=== PATIENT | male | born 1955 | race African-American/Black ===

== ENCOUNTER 2019-04-01 16:04 | Emergency (ER) | payer OTHER ==
--- NOTE | 2019-04-01 16:16 | PDOC ---
Rapid Medical Evaluation Chief Complaint: Blood Pressure Problem Time Seen by Provider: 04/01/19 16:11 Medical Evaluation: Allergies Allergy/AdvReac Type Severity Reaction Status Date / Time No Known Allergies Allergy Verified 09/22/16 12:08 04/01/19 16:11 I have performed a brief in-person evaluation of this patient. The patient presents with a chief complaint of: told to come to ER from [facility] office due to high BP- 190/106 Pertinent physical exam findings: no complaints of H/A, dizziness, CP, Palp- has not taken meds since November. I have ordered the following: UA , EKG The patient will proceed to the ED for further evaluation. 04/01/19 16:12 Discharge Disposition - Diagnosis Hypertension - Referrals - Patient Instructions - Post Discharge Activity
[2019-04-01 16:18] VITALS: PULSE 84; BMI 34.4
--- NOTE | 2019-04-01 17:36 | PDOC ---
History of Present Illness - General Chief Complaint: Blood Pressure Problem Stated Complaint: HYPERTENSION Time Seen by Provider: 04/01/19 16:11 History Source: Patient Exam Limitations: No Limitations - History of Present Illness Initial Comments: 04/01/19 19:46 Pt is a 63yo M with PMH of HTN, HLD presenting to ED from GI office for htn. He was found to have bp 190s/100s in office and told to come to ED. Pt denies chest pain, sob, headache, vision changes, abdominal pain, n/v/d, swelling. He states his pmd started him on amlodipine 5mg but had prescription insurance problems and could not get it filled. Insurance problem is fixed but he does not have refills. PMD: Bernadine PMH: see hpi PSH: none Meds: amlodipine Allergies: nkda Past History - Past Medical History Allergies/Adverse Reactions: Allergies Allergy/AdvReac Type Severity Reaction Status Date / Time No Known Allergies Allergy Verified 04/01/19 16:18 Home Medications: Ambulatory Orders Warfarin Na [Coumadin -] 7.5 mg PO DAILY 06/09/15 Amlodipine Besylate [Norvasc -] 5 mg PO DAILY #30 tablet 04/01/19 Anemia: No Asthma: No Cancer: No Cardiac Disorders: No CVA: No COPD: No CHF: No DVT: Yes (LLE) Dementia: No Diabetes: No GI Disorders: No Disorders: No HTN: Yes Hypercholesterolemia: No Liver Disease: No Seizures: No Thyroid Disease: No - Surgical History Abdominal Surgery: Yes (DENIES) Appendectomy: No Cardiac Surgery: No Cholecystectomy: No Lung Surgery: No Neurologic Surgery: No Orthopedic Surgery: No - Suicide/Smoking/Psychosocial Hx Smoking History: Never smoked Have you smoked in the past 12 months: No Hx Alcohol Use: No Drug/Substance Use Hx: No Substance Use Type: None Hx Substance Use Treatment: No Review of Systems - Review of Systems Constitutional: No: Symptoms Reported HEENTM: No: Symptoms Reported Respiratory: No: Symptoms reported Cardiac (ROS): No: Symptoms Reported ABD/GI: No: Symptoms Reported : No: Symptoms Reported Musculoskeletal: No: Symptoms Reported Integumentary: No: Symptoms Reported Neurological: No: Symptoms reported *Physical Exam - Vital Signs Last Vital Signs Temp Pulse Resp BP Pulse Ox 97.7 F 84 16 166/100 96 04/01/19 16:12 04/01/19 16:12 04/01/19 16:12 04/01/19 16:12 04/01/19 16:12 - Physical Exam General Appearance: Yes: Nourished, Appropriately Dressed. No: Apparent Distress HEENT: positive: EOMI, JOHN, Normal ENT Inspection Neck: positive: Trachea midline, Supple. negative: Lymphadenopathy (R), Lymphadenopathy (L) Respiratory/Chest: positive: Lungs Clear, Normal Breath Sounds. negative: Crackles, Wheezing Cardiovascular: positive: Regular Rhythm, Regular Rate, S1, S2. negative: Edema , JVD, Murmur Vascular Pulses: Carotid (R): 2+, Carotid (L): 2+, Dorsalis-Pedis (R): 2+, Doralis-Pedis (L): 2+ Gastrointestinal/Abdominal: positive: Normal Bowel Sounds, Soft Musculoskeletal: negative: CVA Tenderness Extremity: positive: Normal Capillary Refill. negative: Pedal Edema, Swelling Integumentary: positive: Normal Color, Dry, Warm Neurologic: positive: bulk sealer II-XII NML intact, Fully Oriented, Alert, Normal Mood/ Affect, Normal Response, Motor Strength 5/5 Medical Decision Making - Medical Decision Making 04/01/19 19:49 Pt is a 63yo M with PMH of HTN, HLD presenting to ED from GI office for htn. He was found to have bp 190s/100s in office and told to come to ED. Pt denies chest pain, sob, headache, vision changes, abdominal pain, n/v/d, swelling. He states his pmd started him on amlodipine 5mg but had prescription insurance problems and could not get it filled. Insurance problem is fixed but he does not have refills. Vitals: wnl PE: normal ddx includes but not limited to htn. PT asymptomatic, low suspicion for htn emergency/urgency, dissection, acs, pulmonary edema, cva/tia. Does not require further intervention at this time. BP is 144 systolic when I checked in the room , does not require acute intervention at this time. Will send rx to pharmacy for amlodipine 5mg for 30 days. Pt has pmd f/u. can be dc home. pt agrees to plan. given return precautions. *DC/Admit/Observation/Transfer Diagnosis at time of Disposition: Hypertension Qualifiers: Hypertension type: unspecified Qualified Code(s): I10 - Essential (primary) hypertension - Discharge Dispostion Disposition: HOME Condition at time of disposition: Improved Decision to Admit order: No - Prescriptions Prescriptions: Amlodipine Besylate [Norvasc -] 5 mg PO DAILY #30 tablet - Referrals Referrals: Fide Ramsey MD [Primary Care Provider] - - Patient Instructions Printed Discharge Instructions: DI for High Blood Pressure, How to Monitor Your Blood Pressure at Home Additional Instructions: You were seen in the emergency room for high blood pressure. Your blood pressure here was 160s/90s then 140s/80s. You are not having any symptoms at this time, no further testing is needed. A prescription for amlodipine 5mg was sent to your pharmacy. Please take daily as directed. I highly recommend you make an appointment with you primary care doctor to monitor your blood pressure and your cholesterol. Please make an appointment this week. Come back to the emergency room if you have chest pain, have blurry vision, headaches, difficulty breathing, leg swelling or if any new concerning symptom develops. Thank you - Post Discharge Activity
--- NOTE | 2019-04-01 17:40 | PDOC ---
Documentation entered by Gavin Lockhart SCRIBE, acting as scribe for Indu Cotton MD. Indu Cotton MD: This documentation has been prepared by the Richy ortega Daniel, SCRIBE, under my direction and personally reviewed by me in its entirety. I confirm that the documentation accurately reflects all work, treatment, procedures, and medical decision making performed by me. Attending Attestation - Resident Resident Name: Ashly Perla - ED Attending Attestation I have performed the following: I have examined & evaluated the patient, The case was reviewed & discussed with the resident, I agree w/resident's findings & plan, Exceptions are as noted - HPI HPI: 04/01/19 17:32 63 yo male sent from Dr Gomez's office because his BP was elevated w SBP in 190's. head ncat eyes eomi neck supple lungs cta b/l cvs [id number] abd nontender skin warm and dry no flank tendernress neuro axox3,ambulatory,no gross focal neuro deficits - Physicial Exam PE: 04/01/19 17:41 please see above physical exam - Medical Decision Making 04/01/19 17:35 -he denies chest pain,visual changes,headache,shortness of breath,nausea or vomiting or any problems w his gait . pt is asymptomatic and states because of an insurance issue he had not been taking his blood pressure medication. However his insurance is now in effect and he simply needs a prescription sent to his [facility] pharmacy on [address] essential HTN plan RX to pharmacy
[2019-04-01 17:43] VITALS: BP 149/88; TEMP 98.1
[2019-04-01 17:49] LABS: EPI CELLS 0.2 /HPF (0-5/HPF); HYALINE CASTS 0 /lpf (0-8); PH,URINE 7.5 (5.0-8.0); URINE APPEARANCE CLEAR; URINE BILIRUBIN NEGATIVE (NEGATIVE); URINE COLOR DK YELLOW; URINE GLUCOSE (UA) NEGATIVE (NEGATIVE); URINE KETONE TRACE (NEGATIVE); URINE LEUK ESTERASE TRACE (NEGATIVE); URINE NITRITE NEGATIVE (NEGATIVE); URINE PROTEIN TRACE (NEGATIVE); URINE RBC 2 /hpf (0-4); URINE WBC 0 /hpf (0-5)
--- NOTE | 2019-04-02 14:53 | EKG ---
Test Reason : Blood Pressure : / mmHG Vent. Rate : 073 BPM Atrial Rate : 073 BPM P-R Int : 156 ms QRS Dur : 090 ms QT Int : 396 ms P-R-T Axes : 069 049 080 degrees QTc Int : 436 ms NORMAL SINUS RHYTHM POSSIBLE LEFT ATRIAL ENLARGEMENT NONSPECIFIC T WAVE ABNORMALITY ABNORMAL ECG WHEN COMPARED WITH ECG OF 17-MAY-2015 20:46, NONSPECIFIC T WAVE ABNORMALITY, WORSE IN LATERAL LEADS Confirmed by MD EMILIA, KEYONNA ([id number]) on 04/02/2019 2:52:50 PM Referred By: Confirmed By:KEYONNA NIETO MD
== END 2019-04-01 17:40 | disposition home or self-care (01) ==
LOC: JER 16:04
DX: I10 Essential (primary) hypertension (principal)
CPT/HCPCS: 81003; 93005; 93010; 99282-25

== ENCOUNTER 2019-04-25 08:16 | Day surgery (SDC) | payer OTHER | END 2019-04-25 12:25 | disposition home or self-care (01) | LOC: JASU-ENDO 08:16 ==

== ENCOUNTER 2020-12-17 14:27 | Inpatient (IN) | payer OTHER ==
[2020-12-17] MEDS ORDERED: dilTIAZem HCL 50 MG/10 ML - 10 ML VIAL IVPUSH ONE (15:21)
[2020-12-17] MEDS ORDERED: SODIUM CHLORIDE 1,000 ML IV SCH (15:30)
[2020-12-17] MEDS ORDERED: dilTIAZem HCL 125 MG/25 ML - 25 ML VIAL ONE (15:39)
[2020-12-17 16:06] LABS: EOS % 1.9 % (0-4.5); HEMATOCRIT 41.2 % (35.4-49); HEMOGLOBIN 13.1 GM/dL (11.7-16.9); LYMPH % 18.1 % (8-40); MCH 27.9 pg (25.7-33.7); MCHC 31.8 g/dl (32.0-35.9); MEAN CELL VOLUME 87.7 fl (80-96); MONO % 5.7 % (3.8-10.2); NEUT % 73.3 % (42.8-82.8); PLATELET COUNT 214 K/MM3 (134-434); RBC 4.69 M/mm3 (4.00-5.60)
[2020-12-17] MEDS ORDERED: dilTIAZem HCL 30 MG TABLET PO ONE (16:11)
[2020-12-17] MEDS ORDERED: dilTIAZem HCL 30 MG TABLET ONE (16:17)
[2020-12-17 16:22] LABS: INR 1.17 (0.83-1.09); PROTHROMBIN TIME (PATIENT) 14.1 SEC (9.7-13.0)
[2020-12-17 16:25] LABS: ACTIVATED PTT 28.4 SECONDS (25.2-36.5)
[2020-12-17 16:28] LABS: POTASSIUM 4.7 mmol/L (3.5-5.1)
[2020-12-17 16:30] LABS: BLOOD UREA NITROGEN 10.9 mg/dL (7-18); CALCIUM 8.8 mg/dL (8.5-10.1)
[2020-12-17 16:31] LABS: ALBUMIN 3.2 g/dl (3.4-5.0)
[2020-12-17 16:33] LABS: CREATININE 0.9 mg/dL (0.55-1.3)
[2020-12-17 16:35] LABS: BILIRUBIN,TOTAL 1.1 mg/dL (0.2-1); TOT PROT 7.3 g/dl (6.4-8.2)
[2020-12-17 16:38] LABS: N-TERMINAL BNP 1195.4 pg/ml (5-125)
[2020-12-17 17:30] LABS: ERYTHROCYTE SEDIMENTATION RATE 29 mm/hr (0-20)
[2020-12-17 21:33] LABS: URINE APPEARANCE CLEAR; URINE BILIRUBIN NEGATIVE (NEGATIVE); URINE COLOR YELLOW; URINE GLUCOSE (UA) NEGATIVE (NEGATIVE); URINE KETONE NEGATIVE (NEGATIVE)
[2020-12-17 21:34] LABS: URINE LEUK ESTERASE NEGATIVE (NEGATIVE); URINE NITRITE NEGATIVE (NEGATIVE); URINE PROTEIN TRACE (NEGATIVE)
[2020-12-18] MEDS ORDERED: METOPROLOL TARTRATE 5 MG/5 ML VIAL IVPUSH ONE (00:59)
[2020-12-18] MEDS ORDERED: METOPROLOL TARTRATE 5 MG/5 ML VIAL ONE (01:02)
[2020-12-18] MEDS ORDERED: ACETAMINOPHEN 325 MG TABLET (FP) PO PRN (01:15)
[2020-12-18] MEDS ORDERED: DILTIAZEM INJECTION 125 MG in SODIUM CHLORIDE 100 ML IVPB SCH ×3 (01:15→02:18)
[2020-12-18] MEDS ORDERED: FUROSEMIDE 40 MG/4 ML INJECTABLE VIAL IVPUSH ONE (01:40)
[2020-12-18] MEDS ORDERED: dilTIAZem HCL 30 MG TABLET PO ONE (02:00)
[2020-12-18 07:48] LABS: BASO % 0.8 % (0-2.0); EOS % 1.6 % (0-4.5); HEMATOCRIT 40.2 % (35.4-49); HEMOGLOBIN 13.2 GM/dL (11.7-16.9); LYMPH % 16.3 % (8-40); MCH 28.4 pg (25.7-33.7); MCHC 32.8 g/dl (32.0-35.9); MEAN CELL VOLUME 86.5 fl (80-96); MEAN PLT VOLUME 10.2 fl (7.5-11.1); MONO % 5.5 % (3.8-10.2); NEUT % 75.8 % (42.8-82.8); PLATELET COUNT 200 K/MM3 (134-434); RBC 4.65 M/mm3 (4.00-5.60); RDW 16.8 % (11.9-15.9); WHITE BLOOD COUNT 11.3 K/mm3 (4.0-10.0)
[2020-12-18 07:52] LABS: POTASSIUM 3.9 mmol/L (3.5-5.1)
[2020-12-18 07:58] LABS: ALBUMIN 3.1 g/dl (3.4-5.0); BLOOD UREA NITROGEN 11.4 mg/dL (7-18); CALCIUM 8.5 mg/dL (8.5-10.1); MAGNESIUM 2.2 mg/dL (1.8-2.4)
[2020-12-18 08:01] LABS: PHOSPHOROUS 4.1 mg/dL (2.5-4.9)
[2020-12-18 08:02] LABS: BILIRUBIN,TOTAL 1.2 mg/dL (0.2-1); TOT PROT 7.2 g/dl (6.4-8.2)
[2020-12-18] MEDS: CHOLECALCIFEROL (VIT D3) 1,000 UNIT (25 MCG) TABLET PO SCH (09:41)
[2020-12-18] MEDS: APIXABAN 5 MG TABLET PO SCH ×2 (09:42→23:19)
[2020-12-18] MEDS: ASCORBIC ACID 500 MG TABLET (FP) PO SCH ×2 (09:42→23:19)
[2020-12-18] MEDS: ZINC SULFATE 220 MG CAPSULE (FP) PO SCH (09:42)
[2020-12-18] MEDS: FUROSEMIDE 40 MG/4 ML INJECTABLE VIAL IVPUSH SCH (09:42)
[2020-12-19 07:57] LABS: HEMATOCRIT 41.5 % (35.4-49); HEMOGLOBIN 13.5 GM/dL (11.7-16.9); MCH 28.7 pg (25.7-33.7); MCHC 32.6 g/dl (32.0-35.9); MEAN CELL VOLUME 87.8 fl (80-96); MEAN PLT VOLUME 10.6 fl (7.5-11.1); PLATELET COUNT 219 K/MM3 (134-434); RBC 4.72 M/mm3 (4.00-5.60); RDW 16.7 % (11.9-15.9); WHITE BLOOD COUNT 10.5 K/mm3 (4.0-10.0)
[2020-12-19 08:26] LABS: POTASSIUM 3.9 mmol/L (3.5-5.1)
[2020-12-19 08:34] LABS: BLOOD UREA NITROGEN 15.2 mg/dL (7-18)
[2020-12-19 08:35] LABS: CALCIUM 8.8 mg/dL (8.5-10.1)
[2020-12-19 08:36] LABS: MAGNESIUM 2.2 mg/dL (1.8-2.4)
[2020-12-19 08:37] LABS: PHOSPHOROUS 4.2 mg/dL (2.5-4.9)
[2020-12-19 08:38] LABS: BILIRUBIN,TOTAL 1.3 mg/dL (0.2-1); TOT PROT 6.9 g/dl (6.4-8.2)
[2020-12-19] MEDS: ZINC SULFATE 220 MG CAPSULE (FP) PO SCH (10:17)
[2020-12-19] MEDS: CHOLECALCIFEROL (VIT D3) 1,000 UNIT (25 MCG) TABLET PO SCH (10:17)
[2020-12-19] MEDS: FUROSEMIDE 40 MG/4 ML INJECTABLE VIAL IVPUSH SCH (10:18)
[2020-12-19] MEDS: APIXABAN 5 MG TABLET PO SCH ×2 (10:18→23:14)
[2020-12-19] MEDS: ASCORBIC ACID 500 MG TABLET (FP) PO SCH ×2 (10:18→23:14)
[2020-12-19] MEDS ORDERED: POTASSIUM CHLORIDE TABS 10 MEQ TABLET.ER (FP) PO ONE (12:45)
[2020-12-19 18:44] VITALS: BMI 37.5
[2020-12-19] MEDS ORDERED: PATIENT'S OWN MEDICATION (NON-FORMULARY) (Simvastatin 10 MG Tablet) PO SCH (22:00)
[2020-12-19] MEDS ORDERED: ATORVASTATIN CA 10 MG TABLET (FP) PO SCH (22:00)
[2020-12-20 08:01] LABS: BASO % 0.6 % (0-2.0); EOS % 3.4 % (0-4.5); HEMATOCRIT 43.2 % (35.4-49); HEMOGLOBIN 14.2 GM/dL (11.7-16.9); LYMPH % 18.7 % (8-40); MCH 28.6 pg (25.7-33.7); MCHC 32.8 g/dl (32.0-35.9); MEAN CELL VOLUME 87.4 fl (80-96); MEAN PLT VOLUME 10.5 fl (7.5-11.1); NEUT % 71.3 % (42.8-82.8); PLATELET COUNT 234 K/MM3 (134-434); RBC 4.95 M/mm3 (4.00-5.60); RDW 16.2 % (11.9-15.9); WHITE BLOOD COUNT 10.6 K/mm3 (4.0-10.0)
[2020-12-20 08:21] LABS: POTASSIUM 5.9 mmol/L (3.5-5.1)
[2020-12-20 08:26] LABS: BLOOD UREA NITROGEN 15.1 mg/dL (7-18); CALCIUM 8.6 mg/dL (8.5-10.1)
[2020-12-20 08:28] LABS: MAGNESIUM 2.2 mg/dL (1.8-2.4)
[2020-12-20 08:31] LABS: PHOSPHOROUS 4.1 mg/dL (2.5-4.9)
[2020-12-20] MEDS: CHOLECALCIFEROL (VIT D3) 1,000 UNIT (25 MCG) TABLET PO SCH (09:13)
[2020-12-20] MEDS: ZINC SULFATE 220 MG CAPSULE (FP) PO SCH (09:13)
[2020-12-20] MEDS: APIXABAN 5 MG TABLET PO SCH (09:13)
[2020-12-20] MEDS: ASCORBIC ACID 500 MG TABLET (FP) PO SCH (09:13)
[2020-12-20] MEDS: FUROSEMIDE 40 MG/4 ML INJECTABLE VIAL IVPUSH SCH (09:13)
[2020-12-20] MEDS ORDERED: DEXTROSE 50%-WATER - 25 GM/50 ML VIAL IVPUSH ONE (10:42)
[2020-12-20] MEDS ORDERED: INSULIN REGULAR HUMAN 100 UNITS/ML *VIAL IVPUSH ONE (10:42)
[2020-12-20] MEDS ORDERED: CALCIUM GLUCONATE IN NACL 1 GM/50 ML BAG IVPB ONE (10:42)
[2020-12-20] MEDS ORDERED: HYDROCHLOROTHIAZIDE 25 MG TABLET (FP) PO ONE (10:43)
[2020-12-20] MEDS ORDERED: SODIUM ZIRCONIUM CYCLOSILICATE (LOKELMA) 5 GM PACKET PO SCH (10:45)
[2020-12-20] MEDS ORDERED: DEXTROSE 50%-WATER - 25 GM/50 ML VIAL ONE (10:56)
[2020-12-20 11:55] VITALS: BP 153/113; PULSE 144; TEMP 97.9
== END 2020-12-20 12:23 | disposition short-term general hospital (02) | DRG 201 ==
LOC: JER 14:27 → JERBED 16:11 → J4W 12-18 02:43
PROVIDERS: ADMIT Internal Medicine; ATTEND Internal Medicine
DX: I49.5 Sick sinus syndrome (principal); I50.33 Acute on chronic diastolic (congestive) heart failure; I48.92 Unspecified atrial flutter; I11.0 Hypertensive heart disease with heart failure; E87.5 Hyperkalemia; I82.502 Chronic embolism and thrombosis of unspecified deep veins of left lower extremity; Z68.37 Body mass index [BMI] 37.0-37.9, adult; Z86.16 Personal history of COVID-19; R91.1 Solitary pulmonary nodule; E66.9 Obesity, unspecified; E78.5 Hyperlipidemia, unspecified
CPT/HCPCS: 36415; 71045-TC-FY; 71275-TC; 80048; 80053; 80061; 81003; 82728; 83615; 83721; 83735; 83880; 84100; 84443; 84484; 85025; 85027; 85379; 85610; 85651; 85730; 86140; 86769; 86850; 86900; 86901; 87086; 93005; 93010; 93306-TC; 93971-TC; 99285-25; C9803; Q9967; U0003

== ENCOUNTER 2022-03-30 13:04 | Inpatient (IN) | payer OTHER ==
[2022-03-30] MEDS ORDERED: ACETAMINOPHEN 1000 MG/100 ML BAG IVPB ONE (14:58)
[2022-03-30] MEDS ORDERED: ONDANSETRON 4 MG/2 ML VIAL IVPUSH ONE (15:04)
[2022-03-30] MEDS ORDERED: ACETAMINOPHEN INJECTION 100 ML IVPB ONE (15:21)
[2022-03-30] MEDS ORDERED: ONDANSETRON 4 MG/2 ML VIAL ONE (15:21)
[2022-03-30 15:48] LABS: HEMATOCRIT 50.6 % (35.4-49); HEMOGLOBIN 16.7 GM/dL (11.7-16.9); MCH 28.9 pg (25.7-33.7); MCHC 32.9 g/dl (32.0-35.9); MEAN CELL VOLUME 87.8 fl (80-96); MEAN PLT VOLUME 10.6 fl (7.5-11.1); PLATELET COUNT 168 10^3/uL (134-434); RBC 5.77 M/mm3 (4.00-5.60); RDW 14.6 % (11.9-15.9); WHITE BLOOD COUNT 14.7 K/mm3 (4.0-10.0)
[2022-03-30 16:14] LABS: ALBUMIN 3.4 g/dl (3.4-5.0); CALCIUM 8.4 mg/dL (8.5-10.1)
[2022-03-30 16:15] LABS: BLOOD UREA NITROGEN 22.2 mg/dL (7-18)
[2022-03-30 16:19] LABS: BILIRUBIN,TOTAL 0.9 mg/dL (0.2-1); TOT PROT 7.1 g/dl (6.4-8.2)
[2022-03-30 16:32] LABS: ANISOCYTOSIS 0; MACROCYTOSIS 0; TOXIC GRANULATION 1+
[2022-03-30] MEDS ORDERED: LACTATED RINGERS SOLUTION 1000 ML INFUS.BAG IV ONE (17:07)
[2022-03-30] MEDS ORDERED: LACTATED RINGERS SOLUTION 1,000 ML/1,000 ML INFUS.BAG IV SCH (17:15)
[2022-03-30 17:31] LABS: URINE APPEARANCE CLEAR; URINE BILIRUBIN NEGATIVE (NEGATIVE); URINE COLOR DK YELLOW; URINE GLUCOSE (UA) NEGATIVE (NEGATIVE); URINE KETONE TRACE (NEGATIVE); URINE LEUK ESTERASE NEGATIVE (NEGATIVE); URINE NITRITE NEGATIVE (NEGATIVE); URINE PROTEIN TRACE (NEGATIVE)
[2022-03-30] MEDS: LACTATED RINGERS SOLUTION 1,000 ML/1,000 ML INFUS.BAG IV SCH (21:13)
[2022-03-30] MEDS ORDERED: ONDANSETRON 4 MG/2 ML VIAL IVPUSH PRN (21:43)
[2022-03-30] MEDS ORDERED: ACETAMINOPHEN 1000 MG/100 ML BAG IVPB PRN (21:43)
[2022-03-30] MEDS ORDERED: SODIUM CHLORIDE 1,000 ML IV SCH (21:45)
[2022-03-30] MEDS ORDERED: LIDOCAINE HCL 2% JELLY 10 ML CARTRIDGE ONE (22:18)
[2022-03-31 07:04] LABS: BASO % 0.3 % (0-2.0); EOS % 1.7 % (0-4.5); HEMATOCRIT 48.9 % (35.4-49); HEMOGLOBIN 16.3 GM/dL (11.7-16.9); LYMPH % 12.5 % (8-40); MCH 29.3 pg (25.7-33.7); MCHC 33.3 g/dl (32.0-35.9); MEAN CELL VOLUME 88.2 fl (80-96); MEAN PLT VOLUME 10.6 fl (7.5-11.1); NEUT % 79.5 % (42.8-82.8); PLATELET COUNT 155 10^3/uL (134-434); RBC 5.54 M/mm3 (4.00-5.60); RDW 14.8 % (11.9-15.9); WHITE BLOOD COUNT 9.7 K/mm3 (4.0-10.0)
[2022-03-31 07:12] LABS: INR 1.22 (0.83-1.09); PROTHROMBIN TIME (PATIENT) 14.1 SEC (9.7-13.0)
[2022-03-31 07:25] LABS: CALCIUM 8.3 mg/dL (8.5-10.1)
[2022-03-31 07:26] LABS: ALBUMIN 3.3 g/dl (3.4-5.0); BLOOD UREA NITROGEN 19.8 mg/dL (7-18); MAGNESIUM 2.3 mg/dL (1.8-2.4)
[2022-03-31 07:29] LABS: CREATININE 0.8 mg/dL (0.55-1.3); PHOSPHOROUS 3.3 mg/dL (2.5-4.9)
[2022-03-31 07:31] LABS: BILIRUBIN,TOTAL 0.9 mg/dL (0.2-1)
[2022-03-31] MEDS: LACTATED RINGERS SOLUTION 1,000 ML/1,000 ML INFUS.BAG IV SCH (12:39)
[2022-03-31 20:23] VITALS: BMI 30.5
[2022-04-01] MEDS: LACTATED RINGERS SOLUTION 1,000 ML/1,000 ML INFUS.BAG IV SCH (02:22)
[2022-04-01] MEDS ORDERED: LACTATED RINGERS SOLUTION 1,000 ML/1,000 ML INFUS.BAG IV SCH (08:15)
[2022-04-01 09:05] LABS: BASO % 0.3 % (0-2.0); EOS % 3.1 % (0-4.5); HEMATOCRIT 46.5 % (35.4-49); HEMOGLOBIN 15.6 GM/dL (11.7-16.9); MCH 29.4 pg (25.7-33.7); MCHC 33.4 g/dl (32.0-35.9); MEAN CELL VOLUME 87.8 fl (80-96); MEAN PLT VOLUME 9.6 fl (7.5-11.1); MONO % 8.2 % (3.8-10.2); NEUT % 68.4 % (42.8-82.8); PLATELET COUNT 134 10^3/uL (134-434); RDW 14.7 % (11.9-15.9); WHITE BLOOD COUNT 8.5 K/mm3 (4.0-10.0)
[2022-04-01 09:34] LABS: CALCIUM 8.5 mg/dL (8.5-10.1)
[2022-04-01 09:35] LABS: BLOOD UREA NITROGEN 12.1 mg/dL (7-18)
[2022-04-01] MEDS: amLODIPine BESYLATE 5 MG TABLET (FP) PO SCH (09:37)
[2022-04-01] MEDS: ASPIRIN 81 MG CHEWABLE TABLETS PO SCH (09:37)
[2022-04-01] MEDS: FAMOTIDINE 20 MG TABLET PO SCH (09:37)
[2022-04-01] MEDS: metoPROLOL SUCCINATE 25 MG TAB.SR.24H (FP) PO SCH (09:37)
[2022-04-01 09:38] LABS: CREATININE 0.6 mg/dL (0.55-1.3)
[2022-04-01 09:39] LABS: TOT PROT 6.6 g/dl (6.4-8.2)
[2022-04-01 09:40] LABS: BILIRUBIN,TOTAL 0.9 mg/dL (0.2-1)
[2022-04-01] MEDS ORDERED: metoPROLOL SUCCINATE 25 MG TAB.SR.24H (FP) PO SCH (10:00)
[2022-04-01] MEDS: CLOPIDOGREL BISULFATE 75 MG TABLET (FP) PO SCH (12:26)
[2022-04-01] MEDS ORDERED: ARTIFICIAL TEARS (POLYVINYL ALCOHOL) OPTH DROPS OU PRN (14:06)
[2022-04-01] MEDS ORDERED: amLODIPine BESYLATE 5 MG TABLET (FP) PO ONE (14:58)
[2022-04-01] MEDS ORDERED: ACETAMINOPHEN 325 MG TABLET (FP) PO PRN (17:52)
[2022-04-01] MEDS ORDERED: ATORVASTATIN CA 40 MG TABLET (FP) PO SCH (22:00)
[2022-04-02] MEDS: CLOPIDOGREL BISULFATE 75 MG TABLET (FP) PO SCH (09:57)
[2022-04-02] MEDS: ASPIRIN 81 MG CHEWABLE TABLETS PO SCH (09:58)
[2022-04-02] MEDS: FAMOTIDINE 20 MG TABLET PO SCH (09:58)
[2022-04-02] MEDS: metoPROLOL SUCCINATE 25 MG TAB.SR.24H (FP) PO SCH (09:58)
[2022-04-02] MEDS: amLODIPine BESYLATE 5 MG TABLET (FP) PO SCH (09:58)
[2022-04-02 10:24] VITALS: BP 159/84; PULSE 59; TEMP 98.1
== END 2022-04-02 13:51 | disposition home or self-care (01) | DRG 247 ==
LOC: JER 13:04 → JERBED 20:48 → J5S 03-31 11:40
PROVIDERS: ADMIT Hospitalist; ATTEND Internal Medicine
PROC: 0D9670Z Drainage of Stomach with Drainage Device, Via Natural or Artificial Opening (ICD-10-PCS; principal; 2022-03-30)
DX: K56.600 Partial intestinal obstruction, unspecified as to cause (principal); I10 Essential (primary) hypertension; Z86.16 Personal history of COVID-19; Z86.718 Personal history of other venous thrombosis and embolism; I73.9 Peripheral vascular disease, unspecified; E78.5 Hyperlipidemia, unspecified; K21.9 Gastro-esophageal reflux disease without esophagitis; Z68.30 Body mass index [BMI] 30.0-30.9, adult; Z85.46 Personal history of malignant neoplasm of prostate
CPT/HCPCS: 0241U-QW; 36415; 71045-TC-FY; 74019-TC-FY; 74176-TC; 80053; 81003; 83605; 83690; 83735; 84100; 84443; 84484; 85025; 85610; 87086; 93005; 93010; 99285-25